=== PATIENT | female | born 1955 | race Caucasian/White ===

== ENCOUNTER 2017-04-26 18:57 | Emergency (ER) | payer SELFPAY ==
[~2017-04-26] VITALS: Ht 154.9 cm; Wt 90.9 kg
[2017-04-26] MEDS ORDERED: CAPT25TA3 PO (19:45)
[2017-04-26] MEDS ORDERED: LORazepam 1 MG TABLET PO ONE (22:30)
[2017-04-26] MEDS ORDERED: NAPROXEN 250 MG TABLET PO ONE (22:30)
[2017-04-27 00:32] VITALS: BP 145/81
== END 2017-04-27 00:35 | disposition home or self-care (01) ==
LOC: EMS 18:59
DX: S39.012A Strain of muscle, fascia and tendon of lower back, initial encounter (principal); S40.012A Contusion of left shoulder, initial encounter; I10 Essential (primary) hypertension; V43.52XA Car driver injured in collision with other type car in traffic accident, initial encounter; Y93.89 Activity, other specified; Y92.89 Other specified places as the place of occurrence of the external cause; Y99.8 Other external cause status
CPT/HCPCS: 99284